=== PATIENT | female | born 1985 ===

== ENCOUNTER 2018-10-26 15:26 | Emergency (ER) | payer OTHER ==
[2018-10-26 15:41] VITALS: BP 112/72; PULSE 65; RESP 18; TEMP 97.4; O2SAT 98
--- NOTE | 2018-10-26 15:53 | C.PDOC ---
History Of Present Illness This is a 32 year old female with no significant past medical history of who presents for nausea, abdominal pain, and belching since this morning. She reports last night she ate home made food. This morning she woke up with crampy abdominal pain that woke her up. She thought she was hungry so she ate some mac and cheese (store bought). She admits to associated nausea, belching. She took some gas x which provided no relief to her. Denied any associated fever, chills, vomiting, diarrhea, sick contacts, or recent travel. She reports the crampy pain, changed to burning sensation that radiates to her back. She currently stil l has that burning sensation which has not improved over time. Denied any cardiac history or family history. Patient's LMP was 10/09/18, every month, no control use. She reports having a csection last year - uncomplicated. Has not followed up with any PMD. Last seen by OB. Time Seen by Provider: 10/26/18 15:29 Chief Complaint (Nursing): Abdominal Pain History Per: Patient History/Exam Limitations: no limitations Onset/Duration Of Symptoms: Hrs Current Symptoms Are (Timing): Still Present Severity: Moderate Pain Scale Rating Of: 6 Location Of Pain/Discomfort: Epigastric Radiation Of Pain To:: Back Quality Of Discomfort: Cramping, Burning Associated Symptoms: Nausea Past Medical History Reviewed: Nursing Documentation, Vital Signs Vital Signs: Last Vital Signs Temp 97.4 F L 10/26/18 15:31 Pulse 65 10/26/18 15:31 Resp 18 10/26/18 15:31 BP 112/72 10/26/18 15:31 Pulse Ox 98 10/26/18 15:31 - Medical History PMH: No Chronic Diseases Surgical History: Family History: States: No Known Family Hx Denies: Stroke, ID, CAD, Diabetes, Hypertension - Social History Hx Tobacco Use: No Hx Alcohol Use: No Hx Substance Use: No Review Of Systems Constitutional: Negative for: Fever, Chills, Weakness Cardiovascular: Negative for: Chest Pain, Palpitations Respiratory: Negative for: Cough, Shortness of Breath Gastrointestinal: Positive for: Nausea, Abdominal Pain. Negative for: Vomiting, Diarrhea, Constipation Genitourinary: Negative for: Dysuria, Hematuria, Vaginal Discharge, Vaginal Bleeding, Pelvic Pain Musculoskeletal: Positive for: Back Pain Neurological: Negative for: Weakness, Numbness Physical Exam - Physical Exam Appears: Well, Non-toxic, No Acute Distress Skin: Normal Color, Warm, Dry Head: Atraumatic, Normacephalic Cardiovascular: Rhythm Regular Respiratory: Normal Breath Sounds, No Decreased Breath Sounds, No Accessory Muscle Use Gastrointestinal/Abdominal: Normal Exam, Bowel Sounds, Soft, No Organomegaly, No Distention, No Guarding Back: Normal Inspection, No CVA Tenderness, No Vertebral Tenderness, No Muscle Spasm, No Paraspinal Tenderness ED Course And Treatment - Laboratory Results Result Diagrams: 10/26/18 16:21 10/26/18 16:21 O2 Sat by Pulse Oximetry: 98 Medical Decision Making Medical Decision Making: Abdominal Pain Differential Dx - - GERD - Pancreatitis - Aortic aneurysm/dissection - CBC, CMP, Lipase, EMILY, HCG, UA -- All labs WNL, POC negative -- CXR - unremarkable, no mediastinal widening noted, no infiltrates or effusions noted --- Given Zofran, Pepcid - which improved her symptoms Disposition Doctor Will See Patient In The: Office Counseled Patient/Family Regarding: Studies Performed, Diagnosis, Need For Followup - Disposition Disposition: HOME/ ROUTINE Disposition Time: 17:15 Condition: STABLE Additional Instructions: Please follow up with your primary care physician within 1-2 weeks. You can take over the counter antacids for your abdominal pain. Avoid food that will trigger any reflux. Please take care and be will. Instructions: Acid Reflux (Gastroesophageal Reflux Disease), Adult (DC) Forms: [employer] (Malagasy) Print Language: CENTRAL AFRICAN - POA Present On Arrival: None - Clinical Impression Clinical Impression: GERD (gastroesophageal reflux disease), Gastroesophageal reflux disease
[2018-10-26 16:24] LABS: BASO % 0.5 % (0.0-2.0); EOS # 0.1 K/uL (0.0-0.7); EOS % 0.7 % (0.0-4.0); HEMOGLOBIN 12.6 g/dL (11.0-16.0); LYMPH # 1.4 K/uL (1.0-4.3); LYMPH % 15.7 % (20.0-40.0); MEAN CELL VOLUME 77.3 fL (81.0-99.0); MEAN CORPUSCULAR HGB CONC 32.4 g/dL (33.0-37.0); MEAN PLATELET VOLUME 7.4 fL (7.2-11.7); MONO # 0.4 K/uL (0.0-0.8); NEUT # 6.7 K/uL (1.8-7.0); NEUT % 78.1 % (50.0-75.0); RBC 5.02 Mil/uL (3.80-5.20); RED CELL DISTRIBUTION WIDTH 15.3 % (11.5-14.5); WHITE BLOOD COUNT 8.6 K/uL (4.8-10.8)
[2018-10-26 16:38] LABS: SQUAMOUS EPITHIAL 1 /hpf (0-5); URINE BACTERIA RARE (<OCC); URINE BILIRUBIN NEGATIVE (NEGATIVE); URINE BLOOD NEGATIVE (NEGATIVE); URINE CLARITY Clear (Clear); URINE COLOR Colorless (YELLOW); URINE GLUCOSE (UA) NORMAL (Normal); URINE LEUKOCYTE ESTERASE NEG Leu/uL (Negative); URINE PROTEIN NEGATIVE (NEGATIVE); URINE UROBILINOGEN NORMAL mg/dL (0.2-1.0)
[2018-10-26 16:39] LABS: HCG,QUALITATIVE URINE NEGATIVE (NEGATIVE)
[2018-10-26 16:43] LABS: ALB/GLOB RATIO 1.3 (1.0-2.1); ALT/SGPT 20 U/L (9-52); AST/SGOT 22 U/L (14-36); BLOOD UREA NITROGEN 10 mg/dL (7-17); CALCIUM 10.3 mg/dl (8.6-10.4); GFR NON-AFRICAN AMERICAN > 60; LIPASE 62 U/L (23-300)
[2018-10-26 16:53] LABS: CK-MB 0.37 ng/mL (0.0-3.38)
--- NOTE | 2018-10-26 17:20 | RAD ---
Date of service: 10/26/2018 HISTORY: Abdominal pain radiating to back COMPARISON: No prior. FINDINGS: LUNGS: No active pulmonary disease. PLEURA: No significant pleural effusion identified, no pneumothorax apparent. CARDIOVASCULAR: No aortic atherosclerotic calcification present. Normal cardiac size. No pulmonary vascular congestion. OSSEOUS STRUCTURES: No significant abnormalities. VISUALIZED UPPER ABDOMEN: Normal. OTHER FINDINGS: None. IMPRESSION: No active disease.
== END 2018-10-26 17:31 | disposition home or self-care (01) ==
LOC: C.ER 15:26
DX: K21.9 Gastro-esophageal reflux disease without esophagitis (principal)
CPT/HCPCS: 71045; 80053; 81001; 83690; 84484; 84703; 85025; 96374; 96375; 99284; J2405